=== PATIENT | male | born 1960 | race Caucasian/White ===

== ENCOUNTER → 2016-06-06 | Outpatient (CLI) | payer BC, OTHER ==
[~2016-06-06] MED LIST: ASPI325T39 PO; EZET10TA47 PO; LEVO1TAB PO; NSP500 PO; OMEG12006 PO
== END | disposition home or self-care (01) ==
LOC: C.PATHSPEC 09:30
PROVIDERS: ATTEND Dermatology
DX: L82.1 Other seborrheic keratosis (principal)

== ENCOUNTER → 2016-08-27 | Outpatient (CLI) | payer BC ==
[2016-08-27 09:50] LABS: BASO % 0.8 %; BASO ABS # 0.03 K/uL (0-0.2); COMPLETE YES; EOS % 3.5 %; HEMATOCRIT 39.5 % (42-52); IG% 0.3 %; LYMPH % 33.2 %; LYMPH ABS # 1.22 K/uL (1.2-3.4); MEAN CELL VOLUME 85.3 fL (80-100); MEAN CORPUSCULAR HEMOGLOBIN 29.8 pg (25-34); MEAN CORPUSCULAR HGB CONC 34.9 g/dl (32-36); MEAN PLATELET VOLUME 11.2 fL (7.4-10.4); NEUT % 50.2 %; PLATELET COUNT 151 K/uL (130-400); RED BLOOD COUNT 4.63 M/uL (4.7-6.1); WHITE BLOOD COUNT 3.68 K/uL (4.8-10.8)
[2016-08-27 10:04] LABS: ALT/SGPT 38 U/L (12-78); BLOOD UREA NITROGEN 14 mg/dl (7-18); BUN/CREATININE RATIO 15.2 (10-20); CALCIUM 8.7 mg/dl (8.5-10.1); CARBON DIOXIDE 27 mmol/L (21-32); CHLORIDE 108 mmol/L (98-107); CHOLESTEROL 135 mg/dl (0-200); CREATININE 0.91 mg/dl (0.60-1.40); GLUCOSE 95 mg/dl (70-99); POTASSIUM 4.3 mmol/L (3.5-5.1); SODIUM 141 mmol/L (136-145); TRIGLYCERIDES 75 mg/dl (0-150); VERY LOW DENSITY LIPOPROT CALC 15 mg/dl
[2016-08-27 10:15] LABS: ALB/GLOB RATIO 1.3 (0.9-2); ALKALINE PHOSPHATASE 62 U/L (45-117); AST/SGOT 23 U/L (15-37); CHOLESTEROL/HDL RATIO 3.2; HDL CHOLESTEROL 42 mg/dl; LDL CHOLESTEROL CALCULATED 78 mg/dl; THYROID STIMULATING HORMONE 0.503 uIu/ml (0.300-4.500)
--- NOTE | 2016-09-03 09:18 | CODING QUERY MEDICAL NECESSITY ---
CQSUPPORTING DIAGNOSIS NEEDED A supporting diagnosis is required for the test/procedure performed on this patient in order for us to be reimbursed by the patient's insurance. Please provide a supporting diagnosis for the following test/procedure listed below next to the test name along with your signature. *If there is no additional diagnosis for this patient that would support the following test/procedure please document that below next to the test/procedure. Test(s)/Procedure(s) that require a supporting diagnosis: DOS 08/27/16 VITAMIN D TEST Provider Signature: Date: Thank you [facility] Information Management Once completed, please kindly fax back to [phone] For questions please call [phone]
== END | disposition home or self-care (01) ==
LOC: C.LAB1850 07:37
PROVIDERS: ATTEND Nurse Practitioner Family
DX: Z11.59 Encounter for screening for other viral diseases (principal); E03.9 Hypothyroidism, unspecified; E78.5 Hyperlipidemia, unspecified; E83.51 Hypocalcemia; E55.9 Vitamin D deficiency, unspecified

== ENCOUNTER → 2017-03-03 | Outpatient (CLI) | payer BC ==
[2017-03-03 12:35] LABS: BASO % 0.7 %; BASO ABS # 0.03 K/uL (0-0.2); COMPLETE YES; EOS % 1.7 %; HEMATOCRIT 42.9 % (42-52); LYMPH % 26.7 %; LYMPH ABS # 1.13 K/uL (1.2-3.4); MEAN CELL VOLUME 87.4 fL (80-100); MEAN CORPUSCULAR HEMOGLOBIN 30.1 pg (25-34); MEAN CORPUSCULAR HGB CONC 34.5 g/dl (32-36); MEAN PLATELET VOLUME 11.3 fL (7.4-10.4); MONO % 9.4 %; NEUT % 61.5 %; PLATELET COUNT 150 K/uL (130-400); RED BLOOD COUNT 4.91 M/uL (4.7-6.1); WHITE BLOOD COUNT 4.24 K/uL (4.8-10.8)
[2017-03-03 14:49] LABS: BLOOD UREA NITROGEN 15 mg/dl (7-18); BUN/CREATININE RATIO 16.1 (10-20); CARBON DIOXIDE 28 mmol/L (21-32); CHLORIDE 109 mmol/L (98-107); CREATININE 0.93 mg/dl (0.60-1.40); GLUCOSE 96 mg/dl (70-99); POTASSIUM 4.3 mmol/L (3.5-5.1); SODIUM 143 mmol/L (136-145)
[2017-03-03 14:54] LABS: ALB/GLOB RATIO 1.2 (0.9-2); ALKALINE PHOSPHATASE 67 U/L (45-117); ALT/SGPT 34 U/L (12-78); AST/SGOT 22 U/L (15-37); CHOLESTEROL 147 mg/dl (0-200); HDL CHOLESTEROL 49 mg/dl; LDL CHOLESTEROL CALCULATED 83 mg/dl; TRIGLYCERIDES 77 mg/dl (0-150); VERY LOW DENSITY LIPOPROT CALC 15 mg/dl
== END | disposition home or self-care (01) ==
LOC: C.LABPBG 07:57
PROVIDERS: ATTEND Nurse Practitioner Family
DX: E03.9 Hypothyroidism, unspecified (principal); E78.5 Hyperlipidemia, unspecified; F32.9 Major depressive disorder, single episode, unspecified; E55.9 Vitamin D deficiency, unspecified

== ENCOUNTER → 2017-09-05 | Outpatient (CLI) | payer BC ==
[2017-09-05 09:47] LABS: ALBUMIN 3.6 gm/dl (3.4-5.0); ALT/SGPT 33 U/L (12-78); AST/SGOT 22 U/L (15-37); BLOOD UREA NITROGEN 19 mg/dl (7-18); CALCIUM 9.7 mg/dl (8.5-10.1); CARBON DIOXIDE 28 mmol/L (21-32); CHOLESTEROL 140 mg/dl (0-200); CREATININE 1.06 mg/dl (0.60-1.40); GLUCOSE 100 mg/dl (70-99); POTASSIUM 4.3 mmol/L (3.5-5.1); SODIUM 138 mmol/L (136-145)
[2017-09-05 09:59] LABS: ALKALINE PHOSPHATASE 82 U/L (45-117); LDL CHOLESTEROL CALCULATED 89 mg/dl
== END | disposition home or self-care (01) ==
LOC: C.LAB1850 07:17
PROVIDERS: ATTEND Nurse Practitioner Family
DX: E03.9 Hypothyroidism, unspecified (principal); E78.5 Hyperlipidemia, unspecified; F32.9 Major depressive disorder, single episode, unspecified; E55.9 Vitamin D deficiency, unspecified

== ENCOUNTER → 2017-12-18 | Outpatient (CLI) | payer BC ==
[~2017-12-18] VITALS: Ht 188 cm; Wt 97.4 kg
[2017-12-18 15:48] VITALS: BP 132/80; PULSE 77; Ht 188 cm; Wt 97.4 kg
== END | disposition home or self-care (01) ==
LOC: C.NEUR 14:25
PROVIDERS: ATTEND Physician Assistant
DX: G47.33 Obstructive sleep apnea (adult) (pediatric) (principal)

== ENCOUNTER 2019-08-20 19:51 | Observation (INO) ==
[2019-08-20] MEDS ORDERED: SODIUM CHLORIDE 0.9% 1000ML 1,000 ML IV ONE (20:04)
[2019-08-20] MEDS ORDERED: cefTRIAXone SODIUM 2,000 MG/70 ML BAG IV STA (20:04)
[2019-08-20] MEDS ORDERED: PHENAZOPYRIDINE HCL 200 MG TAB PO STA (20:05)
--- NOTE | 2019-08-20 20:14 | Emergency Department Note ---
Impression & Plan Acute pyelonephritis, Acute urinary retention, Failure of outpatient treatment ED Provider Note NAME: AUNG PAGE AGE: 59 SEX: M : 1960 ARRIVES VIA: Walk-In INFORMANT: [Patient] ED PROVIDER(S): [David Mauricio MD] CHIEF COMPLAINT: Bladder pain HISTORY OF PRESENT ILLNESS: Patient is a 59-year-old male who presents to the ED with difficulty voiding and pain in the bladder. He feels he cannot empty. There has been a lot of blood in the urine. The bladder pain is rated as severe. It is constant. The patient was seen yesterday in this ED and diagnosed with pyelonephritis. He was offered a hospitalization but chose to go home. White count yesterday was around 16,000. Since leaving, the patient's urine culture has returned showing E. coli. He is on oral cefdinir, he received IV ceftriaxone yesterday. The patient states that he just does not feel well, he does not feel better. He thinks that his urinary issues have progressed. There has been no vomiting, no flank pain today. Nothing makes his symptoms better or worse. He states that earlier today, he did void but since that timeframe, he has really not been able to go. REVIEW OF SYSTEMS: See HPI for pertinent positives and negatives. A total of ten systems were reviewed and were otherwise negative. PMHx/PSHx: See Below SOCIAL HISTORY: See Below. PHYSICAL EXAM: GENERAL: Patient is in mild distress. HEENT: No acute trauma, normocephalic atraumatic, mucous membranes moist, no nasal congestion, no scleral icterus. NECK: No stridor, no adenopathy, no meningismus, trachea is midline. LUNGS: Clear to auscultation bilaterally, no wheeze, no rhonchi, breath sounds equal. HEART: Without murmurs gallops or rubs, regular rate and rhythm. ABDOMEN: Soft, moderately tender over the bladder, bowel sounds positive, no hernias, no peritonitis. EXTREMITIES: No cyanosis or edema, full range of motion of all the joints without pain or difficulty, no signs for acute trauma. NEUROLOGIC: Oriented x 3, no acute motor or sensory deficits, no focal weakness. SKIN: No rash, no jaundice, no diaphoresis. DIFFERENTIAL DIAGNOSIS: Appendicitis, testicular torsion, infections, diverticulitis, UTI, obstruction, mesenteric ischemia, aortic pathology, inflammatory bowel disease, renal colic, PUD, pancreatitis, pyonephritis, urinary retention, biliary pathology, hernia, volvulus, constipation, as well as other pathologies. EMERGENCY DEPARTMENT COURSE/PROCEDURES: Bladder scan showed around 550 cc, moderate retention. MEDICAL DECISION MAKING: There is a leukocytosis at 14,000, this is consistent with infection. This value is slightly better than yesterday's value of 16,000. There is no anemia. Platelet count slightly low at 127. No significant electrolyte abnormality or kidney failure. Bladder scan showed over 500 cc, moderate retention. A Denton catheter was placed. The patient presents with ongoing urinary symptoms. He was seen yesterday and diagnosed with pyelonephritis. He received IV ceftriaxone and was eventually discharged on Omnicef. He presents back today with ongoing complaints and now he cannot urinate. The patient was given IV saline, he received IV ceftriaxone as antibiotic covera ge. He was given oral Pyridium and oral Flomax. The patient is going to be hospitalized. He has failed outpatient treatment. I did speak to case management, the on-call hospitalist was consulted. Past Med/Surg History Medical History Hyperlipidemia Hypothyroid Nicotine dependence Obstructive sleep apnea of adult Surgical History S/P tonsillectomy Family History Grandfather Colorectal cancer Myocardial infarction Other Diabetes Denies family history of Ovarian cancer Prostate cancer Breast cancer Social History Preferred Language: Greek Communication Ability: Effective Visual Impairment: No Limitations Hearing Ability: Normal In Home Nanny Required: No Beliefs That Will Affect Care: None marital status: Current Living Situation: Spouse current occupational status: employed Other Information That Helps Us Care for You: No Feels Safe at Home: No Is there a partner from a previous relationship who is making you feel unsafe now?: No Any Concerns about Your Family Situation: No Would You Like to Speak to Someone About Your Situation: No Safety Concerns: Feels Safe At This Time Smoking Status: Never smoker Do You Dip or Chew Tobacco: Yes ; Hx Alcohol Use: No Hx Substance Use: No Childhood Exposure to Second-Hand Smoke: No caffeine: Yes Allergies Allergies Allergy/AdvReac Type Severity Reaction Status Date / Time No Known Allergies Allergy Unverified 08/20/19 21:05 Home Meds Home Medications Medication Instructions Recorded Confirmed aspirin 325 mg tablet,delayed 325 mg PO HS 08/06/19 08/20/19 release nicotine (polacrilex) 2 mg gum 2 mg PO UD 08/06/19 08/20/19 ibuprofen [Advil] 400 mg PO Q6H PRN 08/19/19 08/20/19 levothyroxine 137 mcg PO QAM 08/19/19 08/20/19 Previous Rx's Medication Instructions Recorded atorvastatin 10 mg tablet 10 mg PO HS #90 tab 07/28/19 cefdinir 300 mg PO BID 14 Days #28 cap 08/19/19 Results & Data (ED) Vital Signs Vital Signs - 24 hr 08/20/19 19:59 Temperature 36.7 C Temperature Source Oral Pulse Rate 84 Respiratory Rate 20 Blood Pressure 182/77 H Blood Pressure Mean 112 Pulse Oximetry 98 Sepsis Recent Fever Within 48 Hours No Sepsis New/Unexplained Change in Mental Status No Sepsis Action Taken by Nursing No Action Required Home Medications Current Medication List: was personally reviewed by me Laboratory Data Attestation: I reviewed the patient's lab results. Result diagrams: 08/20/19 20:19 08/20/19 20:19 Lab Results 08/20/19 08/20/19 Range/Units 20:19 20:19 WBC 14.80 H (4.8-10.8) K/uL RBC 4.80 (4.7-6.1) M/uL Hgb 14.2 (14.0-18.0) g/dL Hct 40.8 L (42-52) % MCV 85.0 (80-100) fL MCH 29.6 (25-34) pg MCHC 34.8 (32-36) g/dL RDW Std Deviation 41.8 (36.4-46.3) fL RDW Coeff of Betty 13.5 (11.5-14.5) % Plt Count 127 L (130-400) K/uL MPV 11.0 H (7.4-10.4) fL Immature Gran % (Auto) 0.3 % Neut % (Auto) 84.8 % Lymph % (Auto) 4.5 % Newberry % (Auto) 10.2 % Eos % (Auto) 0.1 % Baso % (Auto) 0.1 % Immature Gran # (Auto) 0.05 H (0.00-0.02) K/uL Neut # (Auto) 12.56 H (1.4-6.5) K/uL Lymph # (Auto) 0.66 L (1.2-3.4) K/uL Newberry # (Auto) 1.51 H (0.11-0.59) K/uL Eos # (Auto) 0.01 (0-0.5) K/uL Baso # (Auto) 0.01 (0-0.2) K/uL Sodium 135 L (136-145) mmol/L Potassium 3.7 (3.5-5.1) mmol/L Chloride 106 (98-107) mmol/L Carbon Dioxide 24 (21-32) mmol/L Anion Gap 6.0 (3-11) BUN 17 (7-18) mg/dl Creatinine 1.04 (0.6-1.4) mg/dl Est Cr Clr Drug Dosing 99.0 ml/min Est GFR ( Amer) 89.4 Est GFR (Non-Af Amer) 77.1 BUN/Creatinine Ratio 16.3 (10-20) Glucose 117 H (70-99) mg/dl Calcium 9.4 (8.5-10.1) mg/dl Administered Medications Discontinued Medications Sodium Chloride (Nss 1000ml) 1,000 mls @ 999 mls/hr IV .Q1H1M ONE Stop: 08/20/19 21:04 Last Infusion: 08/20/19 21:35 Dose: 0 mls/hr Documented by: [id number] Admin: 08/20/19 20:32 Dose: 999 mls/hr Documented by: [id number] Ceftriaxone Sodium (Rocephin) 2,000 mg in 70 mls @ 140 mls/hr IV NOW STA Stop: 08/20/19 20:33 Last Infusion: 08/20/19 21:01 Dose: 0 mls/hr Documented by: [id number] Admin: 08/20/19 20:31 Dose: 140 mls/hr Documented by: [id number] Phenazopyridine HCl (Pyridium) 200 mg PO NOW STA Stop: 04/03/20 20:06 Last Admin: 08/20/19 20:31 Dose: 200 mg Documented by: [id number] Tamsulosin HCl (Flomax) 0.4 mg PO NOW ONE Stop: 08/20/19 20:30 Last Admin: 08/20/19 20:36 Dose: 0.4 mg Documented by: [id number] Blood Pressure Blood Pressure Findings: Elevated blood pressure Blood Pressure Disposition: further management by hospitalist Discharge Plan Visit Data *Final* Discharge Date/Time: 08/20/19 21:44 Chief Complaint: Urinary Symptoms Stated Complaint: BLADDER/KIDNEY INFECTION ED Provider: David Mauricio Discharge Problem: Acute pyelonephritis, Acute urinary retention, Failure of outpatient treatment Patient Disposition: Admitted As Inpatient Condition: Good Discharge Instructions Interventions: ED Discharge Assessment Last Done: 08/20/19 21:44
[2019-08-20 20:28] LABS: Basophils # (auto) 0.01 K/uL (0-0.2); Basophils % (auto) 0.1 %; Eosinophils # (auto) 0.01 K/uL (0-0.5); Eosinophils % (auto) 0.1 %; Hematocrit (blood only) 40.8 % (42-52); Hemoglobin 14.2 g/dL (14.0-18.0); Immature Granulocytes # (auto) 0.05 K/uL (0.00-0.02); Immature Granulocytes % (auto) 0.3 %; Lymphocytes # (auto) 0.66 K/uL (1.2-3.4); Lymphocytes % (auto) 4.5 %; Mean Corpuscular Hemoglobin 29.6 pg (25-34); Mean Corpuscular Hgb Conc 34.8 g/dL (32-36); Monocytes # (auto) 1.51 K/uL (0.11-0.59); Monocytes % (auto) 10.2 %; Neutrophils # (auto) 12.56 K/uL (1.4-6.5); Neutrophils % (auto) 84.8 %; Platelet Count 127 K/uL (130-400); RDW Coefficient of Variation 13.5 % (11.5-14.5); RDW Standard Deviation 41.8 fL (36.4-46.3)
[2019-08-20] MEDS ORDERED: TAMSULOSIN HCL 0.4 MG CAP PO ONE (20:29)
[2019-08-20 20:48] LABS: BUN Creatinine Ratio 16.3 (10-20); Calcium 9.4 mg/dl (8.5-10.1); Est GFR (African American) 89.4; Est GFR (Non-African American) 77.1; Potassium 3.7 mmol/L (3.5-5.1)
[2019-08-20] MEDS ORDERED: ACETAMINOPHEN 325 MG TAB PO PRN ×2 (21:09→21:58)
[2019-08-20] MEDS ORDERED: POLYETHYLENE (MIRALAX) 17 GM PACK PO PRN ×2 (21:09→21:58)
[2019-08-20] MEDS ORDERED: ONDANSETRON INJ 2 MG/ML 2 ML VIAL IV PRN ×2 (21:09→21:58)
--- NOTE | 2019-08-20 21:25 | History & Physical Report ---
Date of Service August 20, 2019 Assessment & Plan (1) Acute pyelonephritis: 59 yo M PMHx hypothyroidism, BETTY on CPAP, HLD admitted for continued acute care of pyelonephritis failing outpatient therapy. Acute pyelonephritis: - Pt's WBC today 14.8 from 16.3 yesterday with a left shift. - Pt with some abdominal relief following Denton for bladder drainage. Will continue Denton at this time. - No ABIGAIL on BMP. - Continue Flomax daily started in ED. - Ceftriaxone 2g IV q24 pending UCx sensitivities. - BCx drawn and pending, will follow. - Phenazopyridine 200mg TID PRN, Tylenol PRN pain. BETTY on CPAP: - Continue CPAP qHS while admitted. Hypothyroidism: - Continue home levothyroxine 137 mcg daily. HLD: - Continue home atorvastatin 10 mg daily. Code Status: FULL CODE FEN/GI: Regular diet, no electrolyte abnormalities DVT ppx: Ad sagrario as tolerated, low risk Dispo: admit observation to med/surg for IV Abx pending UCx sensitivity (2) Obstructive sleep apnea of adult: (3) Hypothyroidism: (4) Hyperlipidemia: History of Present Illness Chief Complaint: urinary discomfort, back pain Primary Care Provider: Roshan Barrera III, [employer] 59 yo M PMHx hypothyroidism, BETTY on CPAP, HLD presents for continued urinary urgency, urinary retention, hematuria, and left sided back pain. Pt was seen yesterday in ED for the same symptoms and was found on UA to have UTI. CTAP showed left sided pyelonephritis and enlarged prostate and patient was started on ceftriaxone. He was offered admission but declined at that time. Was discharged home on cefdinir 300mg PO BID. Since yesterday reports no relief of his symptoms and in fact reports that his urinary urgency and back pain has gotten worse. Was unable to void for the majority of the day and his last void after some straining was "mostly blood". No fevers or chills, no nausea or vomiting, no chest pain or shortness of breath. No sick contacts, no respiratory symptoms. In ED again received ceftriaxone, phenazopyridine, Flomax, NSS 1L bolus, and Denton was placed for urinary retention on bladder scan of 550mL. UCx from yesterday reviewed growing E. coli. Hospitalist service consulted for admission. Denies a history of enlarged prostate in the past, but endorses some intermittent difficulty starting his urinary stream. No split stream or decreased stream. No history of kidney stones. No family history of urinary issues. Allergies Allergy/AdvReac Type Severity Reaction Status Date / Time No Known Allergies Allergy Unverified 08/20/19 21:05 Home Medications Home Medications Medication Instructions Recorded Confirmed Type atorvastatin 10 mg tablet 10 mg PO HS #90 tab 07/28/19 08/20/19 Rx aspirin 325 mg tablet,delayed 325 mg PO HS 08/06/19 08/20/19 History release nicotine (polacrilex) 2 mg gum 2 mg PO UD 08/06/19 08/20/19 History cefdinir 300 mg PO BID 14 Days #28 cap 08/19/19 08/20/19 Rx ibuprofen [Advil] 400 mg PO Q6H PRN 08/19/19 08/20/19 History levothyroxine 137 mcg PO QAM 08/19/19 08/20/19 History Past Med/Surg History Medical History Hyperlipidemia Hypothyroid Nicotine dependence Obstructive sleep apnea of adult Surgical History S/P tonsillectomy Family History Grandfather Colorectal cancer Myocardial infarction Other Diabetes Denies family history of Ovarian cancer Prostate cancer Breast cancer Social History Preferred Language: Latvian Communication Ability: Effective Visual Impairment: No Limitations Hearing Ability: Normal Infection Prevention Coordinator Required: No Beliefs That Will Affect Care: None marital status: Current Living Situation: Spouse current occupational status: employed Other Information That Helps Us Care for You: No Feels Safe at Home: No Is there a partner from a previous relationship who is making you feel unsafe now?: No Any Concerns about Your Family Situation: No Would You Like to Speak to Someone About Your Situation: No Safety Concerns: Feels Safe At This Time Smoking Status: Never smoker Do You Dip or Chew Tobacco: Yes ; Hx Alcohol Use: No Hx Substance Use: No Childhood Exposure to Second-Hand Smoke: No caffeine: Yes Review of Systems Constitutional: + malaise; no fever and no chills Respiratory: no cough, no dyspnea and no wheezing Cardiovascular: no chest pain, no palpitations and no edema Gastrointestinal: + abdominal pain (described as "umcomfortable", suprapubic); no nausea, no vomiting, no constipation and no diarrhea/loose stools Genitourinary: + dysuria, + difficulty urinating, + urinary frequency and + hematuria Musculoskeletal: + back pain (left sided) Neurologic: no dizziness, no syncope and no headache(s) Physical Exam Constitutional: WD/WN, vitals as above Eyes: PERRL, conjunctivae normal, anicteric sclerae ENMT: external ear and nose normal, oropharynx normal Neck: trachea midline, no thyromegaly Respiratory: normal respiratory effort, lungs clear to auscultation Cardiovascular: RRR, no murmur, no edema Gastrointestinal (Abdomen): Inspection/Auscultation: abdomen normal to inspection and normal bowel sounds Percussion/Palpation: + abdomen tender (suprapubic) and abdomen soft; no guarding and no hepatosplenomegaly Musculoskeletal: Extremities: strength 5/5 throughout Skin: no rashes, warm and dry Neurologic: PERRL, EOMI, accommodation nl, no face palsy, no dysarthria Psychiatric: A+Ox3, euthymic affect Genitourinary: catheter draining clear yellow urine Results & Data Results & Data ([facility]) Vital Signs (Past 12 Hours) Vital Signs Temp Pulse Resp BP Pulse Ox 08/20/19 19:59 36.7 C 84 20 182/77 H 98 Laboratory Results Laboratory Results - last 24 hr 08/20/19 08/20/19 20:19 20:19 WBC 14.80 H RBC 4.80 Hgb 14.2 Hct 40.8 L MCV 85.0 MCH 29.6 MCHC 34.8 RDW Std Deviation 41.8 RDW Coeff of Betty 13.5 Plt Count 127 L MPV 11.0 H Immature Gran % (Auto) 0.3 Neut % (Auto) 84.8 Lymph % (Auto) 4.5 Ralls % (Auto) 10.2 Eos % (Auto) 0.1 Baso % (Auto) 0.1 Immature Gran # (Auto) 0.05 H Neut # (Auto) 12.56 H Lymph # (Auto) 0.66 L Ralls # (Auto) 1.51 H Eos # (Auto) 0.01 Baso # (Auto) 0.01 Sodium 135 L Potassium 3.7 Chloride 106 Carbon Dioxide 24 Anion Gap 6.0 BUN 17 Creatinine 1.04 Est Cr Clr Drug Dosing 99.0 Est GFR ( Amer) 89.4 Est GFR (Non-Af Amer) 77.1 BUN/Creatinine Ratio 16.3 Glucose 117 H Calcium 9.4 Supervising Physician Co-Signing Physician Notes Patient seen and examined, chart reviewed, case discussed with Dr. Arriaza and I agree with her assessment and plan as documented above. Briefly, patient is a 59yo C male with history of HLP/Hypothyroidism presenting with flank pain, pyelonephritis. Patient seen in the ER yesterday for similar symptoms and was discharged home on Omnicef. He returns today with worsening symptoms, urinary r etention s/p Denton placement in ER. On exam he is afebrile, HD stable, NAD Skin - no rash HEENT - NC/AT, PERRL, EOMI, MMM, Neck supple Heart - +S1/S2, regular, no m/r/g Lungs - CTA Abd - +BS, soft, NT/ND, mild suprapubic discomfort Ext - No edema Denton in place Labs and images reviewed. WBC improved to 14.8 today from 16.34 yesterday. Renal function and electrolytes intact Assessment/Plan - 59yo C male with pyelonephritis, urinary retention -Follow cultures -Ceftriaxone -Flomax -Maintain Denton for now -Remainder of plan as above Resident Activity Tracking Resident Involvement: Resident Care Provided Care Provided: Adult Hospital Medicine
--- NOTE | 2019-08-20 22:48 | Billing Data ---
Date of Service August 20, 2019 Coding Level of Care Code 57971 OBS Care - Level 2
[2019-08-21] MEDS ORDERED: PHENAZOPYRIDINE HCL 200 MG TAB PO PRN ×2 (04:00→04:09)
[2019-08-21 06:07] LABS: BUN Creatinine Ratio 14.4 (10-20); Calcium 8.5 mg/dl (8.5-10.1); Est GFR (African American) 103.7; Est GFR (Non-African American) 89.5; Potassium 3.6 mmol/L (3.5-5.1)
[2019-08-21 06:11] LABS: Basophils # (auto) 0.01 K/uL (0-0.2); Basophils % (auto) 0.1 %; Eosinophils # (auto) 0.02 K/uL (0-0.5); Eosinophils % (auto) 0.2 %; Hemoglobin 12.7 g/dL (14.0-18.0); Immature Granulocytes # (auto) 0.02 K/uL (0.00-0.02); Immature Granulocytes % (auto) 0.2 %; Lymphocytes # (auto) 0.58 K/uL (1.2-3.4); Lymphocytes % (auto) 5.7 %; Mean Corpuscular Hemoglobin 29.2 pg (25-34); Mean Corpuscular Hgb Conc 34.3 g/dL (32-36); Mean Corpuscular Volume 85.1 fL (80-100); Mean Platelet Volume 11.3 fL (7.4-10.4); Monocytes # (auto) 0.94 K/uL (0.11-0.59); Monocytes % (auto) 9.2 %; Neutrophils # (auto) 8.66 K/uL (1.4-6.5); Neutrophils % (auto) 84.6 %; Platelet Count 124 K/uL (130-400); RDW Coefficient of Variation 13.5 % (11.5-14.5); RDW Standard Deviation 42.1 fL (36.4-46.3); Red Blood Count 4.35 M/uL (4.7-6.1); White Blood Count 10.23 K/uL (4.8-10.8)
[2019-08-21] MEDS ORDERED: LEVOTHYROXINE SODIUM 137 MCG TABLET PO SCH (06:30)
[2019-08-21] MEDS ORDERED: PHENAZOPYRIDINE HCL 200 MG TAB PO ONE (15:45)
--- NOTE | 2019-08-21 15:48 | Discharge Summary ---
Date of Service August 21, 2019 Admission HPI Per Admitting Provider 59 yo M PMHx hypothyroidism, BETTY on CPAP, HLD presents for continued urinary urgency, urinary retention, hematuria, and left sided back pain. Pt was seen yesterday in ED for the same symptoms and was found on UA to have UTI. CTAP showed left sided pyelonephritis and enlarged prostate and patient was started on ceftriaxone. He was offered admission but declined at that time. Was discharged home on cefdinir 300mg PO BID. Since yesterday reports no relief of his symptoms and in fact reports that his urinary urgency and back pain has gotten worse. Was unable to void for the majority of the day and his last void after some straining was "mostly blood". No fevers or chills, no nausea or vomiting, no chest pain or shortness of breath. No sick contacts, no respiratory symptoms. In ED again received ceftriaxone, phenazopyridine, Flomax, NSS 1L bolus, and Lyons was placed for urinary retention on bladder scan of 550mL. UCx from yesterday reviewed growing E. coli. Hospitalist service consulted for admission. Denies a history of enlarged prostate in the past, but endorses some intermittent difficulty starting his urinary stream. No split stream or decreased stream. No history of kidney stones. No family history of urinary issues. Principal Diagnosis Acute pyelonephritis Urinary retention secondary to benign prostatic hypertrophy Discharge Exam Constitutional WD/WN, vitals as above ENMT external ear and nose normal, oropharynx normal Respiratory normal respiratory effort, lungs clear to auscultation Cardiovascular RRR, no murmur, no edema Gastrointestinal (Abdomen) Inspection/Auscultation: abdomen normal to inspection and normal bowel sounds Percussion/Palpation: + abdomen tender (suprapubic) and abdomen soft; no guarding and no hepatosplenomegaly Musculoskeletal Extremities: strength 5/5 throughout Skin no rashes, warm and dry Psychiatric A+Ox3, euthymic affect Discharge Data Allergies Allergy/AdvReac Type Severity Reaction Status Date / Time No Known Allergies Allergy Unverified 08/20/19 21:05 Consultations 08/20/19 20:27 ED Decision to Admit Stat Hospital Course (1) Acute pyelonephritis: Helder Raman is a 59 year old male seen at [facility] from August 19 to due to worsening suprapubic pain after previously diagnosed acute pyelonephritis the day before. Diagnosed with acute urinary retention treated with tamsulosin and lyons catheter placement. Appointment to be arranged with urology follow up as below in approximately 7-10 days for trial without catheter. Antibiotic switched to ciprofloxacin; although failure of outpatient therapy almost certainly due to urinary retention rather than antibiotic choice. Pyridium prescribed PRN for pain. (2) Urinary retention due to benign prostatic hyperplasia: (3) Obstructive sleep apnea of adult: (4) Hypothyroidism: (5) Hyperlipidemia: Total Time Total Time Spent Total Time Spent (In Minutes): 35 Total Time Includes: Examination of the Patient, Discharge Planning and Medication Reconciliation Discharge Plan Discharge Items Patient Disposition: Home - Self-Care Reason For Visit: Suprapubic pain Discharge Diagnosis: Acute pyelonephritis Urinary retention secondary to benign prostatic hypertrophy Condition on Discharge: Good Activity: Resume your previous activity Non-emergency contact: Primary Care Provider Call non-emergency contact if: you have any medication questions, your symptoms worsen and you have a fever Follow-up/Referrals: Roshan Barrera III, CRNP [Primary Care Provider] - (No routine follow up required) Miles Serrano MD [Physician] - (7-10 days trial without catheter for urinary retention) Diet: Regular Addtl Attending Provider Instructions: You were seen at [facility] from August 19 to due to worsening suprapubic pain after previously diagnosed acute pyelonephritis. You were diagnosed with acute urinary retention treated with tamsulosin and lyons catheter placement. Please call the urology (Dr Serrano) number above on Friday to arrange follow up in approximately 7-10 days for trial without catheter. Your antibiotic has been changed to ciprofloxacin - please finish course as prescribed. You have been started on medication (tamsulosin) to help with relaxation around the prostatic urethra to help prevent urine retention in the future and ensure you are able to pass urine without the aid of a catheter. Please take Pyridium regularly for the next 1-2 days for bladder spasm pain and then as needed after this. Kind regards, Dr Nasir Wilks Pending Studies at Discharge: No Stand-Alone Forms: My [facility], Smoking Cessation Medications and DC Order Prescriptions: New tamsulosin 0.4 mg Capsule 0.4 mg PO HS Qty: 30 RF: 0 ciprofloxacin HCl 500 mg tablet 500 mg PO BID 10 Days Qty: 20 RF: 0 Continued nicotine (polacrilex) 2 mg gum 2 mg PO UD RF: 0 atorvastatin 10 mg tablet 10 mg PO HS Qty: 90 RF: 1 levothyroxine 137 mcg tablet 137 mcg PO QAM RF: 0 ibuprofen [Advil] 200 mg Tablet 400 mg PO Q6H PRN (Reason: Pain) RF: 0 Discontinued aspirin 325 mg tablet,delayed release (DR/EC) 325 mg PO HS RF: 0 cefdinir 300 mg capsule 300 mg PO BID 14 Days Qty: 28 RF: 0 No Action Azo Urinary Pain Relief 97.5 mg tablet 97.5 mg PO TID Qty: 20 RF: 0 Discharge Orders: Discharge Order (Routine); Ordered 08/21/19 Ordered By: Nasir Lees/Other Patient Handouts: Emptying and Cleaning Your Urinary Catheter Bag, Discharge Instructions Caring for Your Leg Bag, ED Lyons Catheter Care Admission Data Admit Date/Time: 08/20/19 21:09 Attending Provider: Nasir Wilks Admit Provider: Destiny Arriaza Primary Care Provider: Roshan Barrera III Other Interventions: Discharge Summary Assessment (RN) Last Done: 08/21/19 16:01 DC Date/Time DO NOT enter until pt leaves facility: 08/21/19 17:13 Coding Level of Care Code 80598 OBS Care - Discharge Diagnoses Acute pyelonephritis N10 Urinary retention due to benign prostatic hyperplasia N40.1; R33.8 Obstructive sleep apnea of adult G47.33 Hypothyroidism E03.9 Hyperlipidemia E78.5
[2019-08-21] MEDS ORDERED: cefTRIAXone SODIUM 2,000 MG in DEXTROSE 5% 50 ML IV SCH (20:00)
[2019-08-21] MEDS ORDERED: TAMSULOSIN HCL 0.4 MG CAP PO SCH (21:00)
[2019-08-21] MEDS ORDERED: ATORVASTATIN 10 MG TAB PO SCH (21:00)
== END 2019-08-21 17:13 | disposition home or self-care (01) ==
LOC: 3E 19:51 → ED 19:51 → SUATTDRO 21:09 → 3E 21:44